=== PATIENT | male | born 1950 | race Caucasian/White ===

== ENCOUNTER 2024-11-11 10:30 | Outpatient (RCR) | payer MEDICARE, SELFPAY ==
--- NOTE | 2024-10-09 12:43 | URNOTE ---
Request received for authorization for Leuprolide Acetate (EliGenerated) approved for -7.5mg ([id number]). Prior authorization is approved per [facility] Ref# [id number] Date range 10-13-2024 to 10-13-2025, (13 doses).
--- NOTE | 2024-10-10 14:09 | ONC.NURNOTE ---
Diagnosis: prostate cancer
[2024-10-13 09:49] VITALS: BP 122/77; PULSE 72; RESP 16; TEMP 35.9; O2SAT 99
[2024-10-13] MEDS: LEUPROLIDE ACETATE 7.5 MG (SQ) SYRINGE SUBCUT (10:58)
--- NOTE | 2024-11-06 11:02 | URNOTE ---
Request received for authorization for Leuprolide Acetate (Eligard) approved for 22.5mg ([id number]). Prior authorization is approved per [facility] Ref# [id number] Date range 11-06-2024 to 11-06-2025, (4 doses).
[2024-11-11 09:17] VITALS: BP 122/79; PULSE 68; RESP 16; TEMP 36.1; O2SAT 99
[2024-11-11] MEDS: LEUPROLIDE ACETATE 22.5 MG (SQ) SYRINGE SUBCUT (09:48)
== END 2025-04-11 23:59 | disposition home or self-care (01) ==
LOC: CCIC 10:30
PROVIDERS: PCP Nurse Practitioner; Visit Provider Clinical Nurse Specialist
DX: C61 Malignant neoplasm of prostate (principal)
CPT/HCPCS: 96402; J9217